=== PATIENT | female | born 1955 ===

== ENCOUNTER 2017-05-14 18:16 | Inpatient (IN) | payer OTHER, MEDICAID ==
--- NOTE | 2017-05-14 18:35 | DR.H&P ---
H&P - History & Physical for Day of: H&P Date: 05/14/17 - Chief Complaint Chief Complaint: pain, swelling, itching to bilateral upper and lower extremities, more to right lower extremity - Allergies Allergies/Adverse Reactions: Allergies Allergy/AdvReac Type Severity Reaction Status Date / Time No Known Drug Allergies Allergy Verified 05/14/17 18:28 - History of Present Illness History of Present Illness: The patient is a 62-year-old black female who is being admitted to [facility] secondary to pain, swelling, and itching to bilateral upper and lower extremities with the right being more severe. The patient was seen today in the office setting accompanied by a family member that helps provide care for her. Family member states that the patient has been on medication for fungal infection and also Atarax to help control itching, however, none of the medications has helped her at this point. The family member states that the patient's legs especially the right lower leg continues to get worse and worse. Subsequently, the patient is being admitted for further evaluation and treatment. - Past Medical History Past Medical History: Anxiety, Coronary Artery Disease, CVA, Diabetes, GERD, Hypertension - Past Surgical History Surgical History: Unknown - Family History Family History Comment: Non-contributory - Social History Does patient currently use any type of tobacco product: No Have you used tobacco products in the last 12 months: No Type of Tobacco Use: None Does any household member use tobacco: No Alcohol Use: None Drug Use: None - Review of Systems Constitutional: No Symptoms Reported Eyes: No Symptoms Reported ENT: No Symptoms Reported Respiratory: No Symptoms Reported Cardiovascular: No Symptoms Reported Gastrointestinal: No Symptoms Reported Genitourinary: No Symptoms Reported Musculoskeletal: No Symptoms Reported Skin: See HPI Neurological: Other (Patient has Dysphagia secondary to CVA) Oriented: Unable to test (Patient has deficits from CVA, family member present to answer questions.) Eyes: Normal Ear: Normal Nose: Normal Throat: Normal Respiratory: Clear Throughout Cardiovascular: Normal : Normal Auscultation: Bowel Sounds: Normal Palpation: Normal Tenderness: Normal Skin: Rash, Red, Tender, Hot, Wound Musculoskeletal: Motor Deficit (related to hx of CVA) Psychiatric: Anxiety Mood Description: Anxious Affect: Anxious Speech Pattern: Unclear, Slurred (deficits related to hx of CVA) - Assessment/Plan (1) Extensive circumferential cellulitis RLE Status: Acute Plan: Admit to med/surg. See medical record for orders. (2) Dermatitis to upper and lower ext Status: Acute Plan: Admit to med/surg. See medical record for orders.
[2017-05-14 19:51] LABS: BASOPHILS % (AUTO) 0.2 % (0.2-1.0); EOSINOPHILS # (AUTO) 0.6 x10^3/uL (0.0-0.2); EOSINOPHILS % (AUTO) 2.8 % (0.9-2.9); HEMATOCRIT 36.2 % (36.0-47.0); HEMOGLOBIN 11.8 g/dL (12.0-16.0); LYMPHOCYTES # (AUTO) 12.5 X10^3/uL (1.3-2.9); LYMPHOCYTES % (AUTO) 60.5 % (21.0-51.0); MEAN CORPUSCULAR HEMOGLOBIN 26.2 pg (27.0-34.0); MEAN CORPUSCULAR HGB CONC 32.7 g/dL (33.0-35.0); MEAN CORPUSCULAR VOLUME 80.1 fL (80.0-100.0); MEAN PLATELET VOLUME 8.2 fL (7.4-11.0); MONOCYTES # (AUTO) 0.8 x10^3/uL (0.3-0.8); MONOCYTES % (AUTO) 3.8 % (0.0-13.0); NEUTROPHILS # (AUTO) 6.7 x10^3/uL (2.2-4.8); NEUTROPHILS % (AUTO) 32.7 % (42.0-75.0); PLATELET COUNT 235 X10^3/uL (150.0-450.0); RED BLOOD COUNT 4.53 X10^6/uL (3.5-5.4); RED CELL DISTRIBUTION WIDTH 14.3 % (11.6-16.5)
[2017-05-14 20:07] LABS: WHITE BLOOD COUNT 20.6 X10^3/uL (3.6-10.0)
[2017-05-14 20:10] LABS: PLATELET MORPHOLOGY COMMENT NORMAL (NORMAL)
[2017-05-14 20:16] LABS: ALANINE AMINOTRANSFERASE 28 Units/L (12-78); ALBUMIN 3.6 g/dL (3.4-5.0); ALKALINE PHOSPHATASE 112 Units/L (46-116); ASPARTATE AMINO TRANSFERASE 22 Units/L (15-37); BLOOD UREA NITROGEN 18 mg/dL (7-18); CALCIUM 8.8 mg/dL (8.5-10.1); CARBON DIOXIDE 25.5 mmol/L (21-32); CHLORIDE 108 mmol/L (98-107); CREATININE 1.03 mg/dL (0.55-1.02); FREE T4 (FREE THYROXINE) 1.29 ng/dL (0.76-1.46); MAGNESIUM 1.7 mg/dL (1.7-2.9); SODIUM 142 mmol/L (136-145); TOTAL PROTEIN 7.8 g/dL (6.4-8.2); TSH (3RD GENERATION) 0.856 uIU/mL (0.358-3.74); eGFR BLACK RACES > 60 (>60); eGFR NON BLACK RACES 58 (>60)
[2017-05-14 20:29] LABS: ERYTHROCYTE SEDIMENTATION RATE 66 MM/HOUR (0-20)
[2017-05-14 20:41] VITALS: BMI 36.0
[2017-05-14] MEDS: TEFLARO 600 MG in NS 50 ML IV + SPIKE MINIBAG* 50 ML IV SCH (23:22)
[2017-05-14] MEDS: NS 1000 ML 1,000 ML IV SCH (23:22)
[2017-05-15] MEDS: VISTARIL PO PRN ×2 (00:25→13:30)
[2017-05-15 00:29] LABS: BILIRUBIN,URINE NEGATIVE (NEGATIVE); BLOOD/HEMOGLOBIN,URINE NEGATIVE (NEGATIVE); GLUCOSE, URINE NEGATIVE (NEGATIVE); KETONES,URINE NEGATIVE (NEGATIVE); LEUKOCYTE ESTERASE ,URINE NEGATIVE (NEGATIVE); NITRITES,URINE POSITIVE (NEGATIVE); PROTEIN,URINE 1+ (NEGATIVE); UROBILINOGEN,URINE NORMAL (NORMAL)
[2017-05-15 00:34] LABS: COLOR,URINE YELLOW (YELLOW)
[2017-05-15 00:35] LABS: APPEARANCE,URINE CLEAR (CLEAR); BACTERIA,URINE 1+ /HPF (NEGATIVE); MUCUS,URINE MODERATE /HPF (NEGATIVE); RBC,URINE 0-3 /HPF (NEGATIVE); SQUAMOUS EPITHELIAL CELL,UR RARE /HPF (NEGATIVE)
[2017-05-15 05:19] LABS: BASOPHILS # (AUTO) 0.1 X10^3/uL (0.0-0.1); BASOPHILS % (AUTO) 0.4 % (0.2-1.0); EOSINOPHILS # (AUTO) 0.5 x10^3/uL (0.0-0.2); EOSINOPHILS % (AUTO) 2.9 % (0.9-2.9); HEMATOCRIT 33.8 % (36.0-47.0); HEMOGLOBIN 11.2 g/dL (12.0-16.0); LYMPHOCYTES # (AUTO) 10.3 X10^3/uL (1.3-2.9); LYMPHOCYTES % (AUTO) 59.7 % (21.0-51.0); MEAN CORPUSCULAR HEMOGLOBIN 26.7 pg (27.0-34.0); MEAN CORPUSCULAR HGB CONC 33.1 g/dL (33.0-35.0); MEAN CORPUSCULAR VOLUME 80.6 fL (80.0-100.0); MEAN PLATELET VOLUME 8.5 fL (7.4-11.0); MONOCYTES # (AUTO) 0.8 x10^3/uL (0.3-0.8); MONOCYTES % (AUTO) 4.7 % (0.0-13.0); NEUTROPHILS # (AUTO) 5.5 x10^3/uL (2.2-4.8); NEUTROPHILS % (AUTO) 32.3 % (42.0-75.0); PLATELET COUNT 211 X10^3/uL (150.0-450.0); RED BLOOD COUNT 4.19 X10^6/uL (3.5-5.4); RED CELL DISTRIBUTION WIDTH 13.8 % (11.6-16.5); WHITE BLOOD COUNT 17.2 X10^3/uL (3.6-10.0)
[2017-05-15 05:23] LABS: BLOOD UREA NITROGEN 17 mg/dL (7-18); CALCIUM 8.3 mg/dL (8.5-10.1); CARBON DIOXIDE 24.7 mmol/L (21-32); CHLORIDE 109 mmol/L (98-107); CREATININE 0.88 mg/dL (0.55-1.02); SODIUM 144 mmol/L (136-145); eGFR BLACK RACES > 60 (>60); eGFR NON BLACK RACES > 60 (>60)
[2017-05-15] MEDS: TEFLARO 600 MG in NS 50 ML IV + SPIKE MINIBAG* 50 ML IV SCH ×2 (09:41→21:59)
[2017-05-15] MEDS ORDERED: ELIMITE TOPICAL CREAM TOP NR (10:00)
--- NOTE | 2017-05-15 11:05 | RAD ---
HISTORY: Shortness of breath. Study: Portable chest. Comparison: None. Findings: The trachea is midline. The cardiac silhouette is enlarged. No overt signs of failure. Ectatic thora cic aorta. No obvious focal consolidation, pleural effusion, or pneumothorax. The bony thorax is un remarkable. IMPRESSION: No acute cardiopulmonary disease. Reported By:
[2017-05-15] MEDS ORDERED: VISTARIL PO SCH (19:00)
[2017-05-15] MEDS: DILANTIN CAP 100 MG EXT REL PO SCH (21:59)
[2017-05-15] MEDS: ZOCOR TAB 40 MG PO SCH (21:59)
[2017-05-15] MEDS: TENORMIN PO SCH (21:59)
[2017-05-16] MEDS: NS 1000 ML 1,000 ML IV SCH ×2 (03:09→07:05)
[2017-05-16] MEDS: TENORMIN PO SCH ×3 (05:32→22:17)
[2017-05-16] MEDS: VISTARIL PO SCH ×3 (05:32→22:16)
[2017-05-16 06:08] LABS: BASOPHILS % (AUTO) 0.2 % (0.2-1.0); EOSINOPHILS # (AUTO) 0.4 x10^3/uL (0.0-0.2); EOSINOPHILS % (AUTO) 2.1 % (0.9-2.9); HEMATOCRIT 33.9 % (36.0-47.0); HEMOGLOBIN 11.1 g/dL (12.0-16.0); LYMPHOCYTES % (AUTO) 55.2 % (21.0-51.0); MEAN CORPUSCULAR HEMOGLOBIN 26.2 pg (27.0-34.0); MEAN CORPUSCULAR HGB CONC 32.8 g/dL (33.0-35.0); MEAN CORPUSCULAR VOLUME 79.9 fL (80.0-100.0); MEAN PLATELET VOLUME 8.8 fL (7.4-11.0); MONOCYTES # (AUTO) 1.1 x10^3/uL (0.3-0.8); MONOCYTES % (AUTO) 5.5 % (0.0-13.0); NEUTROPHILS # (AUTO) 7.4 x10^3/uL (2.2-4.8); PLATELET COUNT 206 X10^3/uL (150.0-450.0); RED BLOOD COUNT 4.24 X10^6/uL (3.5-5.4); RED CELL DISTRIBUTION WIDTH 13.8 % (11.6-16.5); WHITE BLOOD COUNT 19.9 X10^3/uL (3.6-10.0)
[2017-05-16 06:38] LABS: ALANINE AMINOTRANSFERASE 23 Units/L (12-78); ALBUMIN 2.7 g/dL (3.4-5.0); ALKALINE PHOSPHATASE 95 Units/L (46-116); ASPARTATE AMINO TRANSFERASE 34 Units/L (15-37); BLOOD UREA NITROGEN 13 mg/dL (7-18); CALCIUM 8.3 mg/dL (8.5-10.1); CARBON DIOXIDE 24.7 mmol/L (21-32); CHLORIDE 109 mmol/L (98-107); COR CA(FOR HYPOALB) 9.3 mg/dL (8.5-10.1); SODIUM 141 mmol/L (136-145); TOTAL PROTEIN 6.7 g/dL (6.4-8.2); eGFR BLACK RACES > 60 (>60); eGFR NON BLACK RACES > 60 (>60)
[2017-05-16] MEDS: XANAX PO PRN (07:04)
[2017-05-16] MEDS ORDERED: PATIENT'S HOME MEDICATION (Potassium Chloride [Potassium Chloride] 1 TAB) PO SCH (09:00)
[2017-05-16] MEDS: TEFLARO 600 MG in NS 50 ML IV + SPIKE MINIBAG* 50 ML IV SCH ×2 (09:33→22:16)
[2017-05-16] MEDS: PLAVIX PO SCH (09:36)
[2017-05-16] MEDS: NORVASC TAB 10 MG PO SCH (09:37)
[2017-05-16] MEDS: K-DUR TAB 20 MEQ PO SCH (09:37)
[2017-05-16] MEDS: LASIX PO SCH (09:37)
[2017-05-16] MEDS: NYSTATIN POWDER TOP SCH ×2 (15:00→22:17)
[2017-05-16] MEDS: BACTROBAN CREAM TOP SCH ×2 (16:59→22:18)
[2017-05-16] MEDS: DILANTIN CAP 100 MG EXT REL PO SCH (22:16)
[2017-05-16] MEDS: ZOCOR TAB 40 MG PO SCH (22:17)
[2017-05-16] MEDS: VITAMIN C PO SCH (22:17)
[2017-05-17] MEDS: NS 1000 ML 1,000 ML IV SCH (05:26)
[2017-05-17] MEDS: BACTROBAN CREAM TOP SCH ×3 (05:27→22:41)
[2017-05-17] MEDS: TENORMIN PO SCH ×3 (05:27→22:40)
[2017-05-17] MEDS: VISTARIL PO SCH ×3 (05:27→22:40)
[2017-05-17 05:46] LABS: BASOPHILS % (AUTO) 0.2 % (0.2-1.0); EOSINOPHILS # (AUTO) 0.4 x10^3/uL (0.0-0.2); EOSINOPHILS % (AUTO) 2.1 % (0.9-2.9); HEMATOCRIT 36.6 % (36.0-47.0); LYMPHOCYTES # (AUTO) 12.3 X10^3/uL (1.3-2.9); LYMPHOCYTES % (AUTO) 60.3 % (21.0-51.0); MEAN CORPUSCULAR HEMOGLOBIN 26.3 pg (27.0-34.0); MEAN CORPUSCULAR HGB CONC 32.8 g/dL (33.0-35.0); MEAN CORPUSCULAR VOLUME 80.4 fL (80.0-100.0); MEAN PLATELET VOLUME 8.6 fL (7.4-11.0); MONOCYTES # (AUTO) 0.9 x10^3/uL (0.3-0.8); MONOCYTES % (AUTO) 4.6 % (0.0-13.0); NEUTROPHILS # (AUTO) 6.7 x10^3/uL (2.2-4.8); NEUTROPHILS % (AUTO) 32.8 % (42.0-75.0); PLATELET COUNT 214 X10^3/uL (150.0-450.0); RED BLOOD COUNT 4.55 X10^6/uL (3.5-5.4); RED CELL DISTRIBUTION WIDTH 14.1 % (11.6-16.5)
[2017-05-17 05:54] LABS: ALANINE AMINOTRANSFERASE 22 Units/L (12-78); ALBUMIN 2.7 g/dL (3.4-5.0); ALKALINE PHOSPHATASE 96 Units/L (46-116); ASPARTATE AMINO TRANSFERASE 25 Units/L (15-37); BLOOD UREA NITROGEN 14 mg/dL (7-18); CALCIUM 8.3 mg/dL (8.5-10.1); CARBON DIOXIDE 25.2 mmol/L (21-32); CHLORIDE 109 mmol/L (98-107); COR CA(FOR HYPOALB) 9.3 mg/dL (8.5-10.1); COR NA(FOR HYPERGLY) 142 mmol/L (136-145); CREATININE 0.99 mg/dL (0.55-1.02); SODIUM 141 mmol/L (136-145); TOTAL PROTEIN 6.9 g/dL (6.4-8.2); eGFR BLACK RACES > 60 (>60); eGFR NON BLACK RACES > 60 (>60)
[2017-05-17 06:46] LABS: WHITE BLOOD COUNT 20.4 X10^3/uL (3.6-10.0)
[2017-05-17 06:47] LABS: PLATELET MORPHOLOGY COMMENT NORMAL (NORMAL)
[2017-05-17] MEDS: ZINC SULFATE PO SCH (11:01)
[2017-05-17] MEDS: K-DUR TAB 20 MEQ PO SCH (11:01)
[2017-05-17] MEDS: PLAVIX PO SCH (11:02)
[2017-05-17] MEDS: TEFLARO 600 MG in NS 50 ML IV + SPIKE MINIBAG* 50 ML IV SCH ×2 (11:03→22:40)
[2017-05-17] MEDS: VITAMIN C PO SCH ×2 (11:03→22:40)
[2017-05-17] MEDS: LASIX PO SCH (11:03)
[2017-05-17] MEDS: NORVASC TAB 10 MG PO SCH (11:03)
[2017-05-17] MEDS: NYSTATIN POWDER TOP SCH ×2 (11:03→22:41)
[2017-05-17] MEDS ORDERED: PHARMACY CONSULT - DOSE _____ XX SCH (15:00)
[2017-05-17] MEDS ORDERED: MORPHINE SULFATE INJ 4 MG ONE (15:23)
[2017-05-17] MEDS: MORPHINE SULFATE INJ 2 MG INJ IVP PRN (15:28)
[2017-05-17] MEDS: CLEOCIN 600 MG IV PREMIX 600 MG/50 ML BAG IV SCH ×2 (16:21→22:40)
[2017-05-17] MEDS: SILVADENE TOP SCH (16:21)
[2017-05-17] MEDS: ZOCOR TAB 40 MG PO SCH (22:40)
[2017-05-17] MEDS: DILANTIN CAP 100 MG EXT REL PO SCH (22:40)
[2017-05-18] MEDS: CLEOCIN 600 MG IV PREMIX 600 MG/50 ML BAG IV SCH ×4 (04:43→21:14)
[2017-05-18] MEDS: NS 1000 ML 1,000 ML IV SCH ×2 (05:08→21:15)
[2017-05-18] MEDS: VISTARIL PO SCH ×3 (05:26→21:14)
[2017-05-18] MEDS: TENORMIN PO SCH ×3 (05:26→21:15)
[2017-05-18] MEDS: BACTROBAN CREAM TOP SCH ×3 (05:27→21:23)
[2017-05-18 06:16] LABS: ALANINE AMINOTRANSFERASE 22 Units/L (12-78); ALBUMIN 2.4 g/dL (3.4-5.0); ALKALINE PHOSPHATASE 94 Units/L (46-116); ASPARTATE AMINO TRANSFERASE 22 Units/L (15-37); BLOOD UREA NITROGEN 12 mg/dL (7-18); CALCIUM 8.2 mg/dL (8.5-10.1); CARBON DIOXIDE 25.4 mmol/L (21-32); CHLORIDE 109 mmol/L (98-107); COR CA(FOR HYPOALB) 9.5 mg/dL (8.5-10.1); SODIUM 142 mmol/L (136-145); TOTAL PROTEIN 6.4 g/dL (6.4-8.2); eGFR BLACK RACES > 60 (>60); eGFR NON BLACK RACES 54 (>60)
[2017-05-18 06:19] LABS: BASOPHILS % (AUTO) 0.3 % (0.2-1.0); EOSINOPHILS # (AUTO) 0.5 x10^3/uL (0.0-0.2); EOSINOPHILS % (AUTO) 3.3 % (0.9-2.9); HEMATOCRIT 34.9 % (36.0-47.0); HEMOGLOBIN 11.6 g/dL (12.0-16.0); LYMPHOCYTES # (AUTO) 11.4 X10^3/uL (1.3-2.9); LYMPHOCYTES % (AUTO) 69.6 % (21.0-51.0); MEAN CORPUSCULAR HEMOGLOBIN 26.5 pg (27.0-34.0); MEAN CORPUSCULAR HGB CONC 33.2 g/dL (33.0-35.0); MEAN CORPUSCULAR VOLUME 79.7 fL (80.0-100.0); MEAN PLATELET VOLUME 8.5 fL (7.4-11.0); MONOCYTES # (AUTO) 0.9 x10^3/uL (0.3-0.8); MONOCYTES % (AUTO) 5.7 % (0.0-13.0); NEUTROPHILS # (AUTO) 3.4 x10^3/uL (2.2-4.8); NEUTROPHILS % (AUTO) 21.1 % (42.0-75.0); PLATELET COUNT 222 X10^3/uL (150.0-450.0); RED BLOOD COUNT 4.37 X10^6/uL (3.5-5.4); RED CELL DISTRIBUTION WIDTH 13.9 % (11.6-16.5); WHITE BLOOD COUNT 16.4 X10^3/uL (3.6-10.0)
[2017-05-18 06:54] LABS: BAND NEUTROPHILS % 3 % (0-10); PLATELET MORPHOLOGY COMMENT NORMAL (NORMAL)
[2017-05-18] MEDS ORDERED: XYLOCAINE 1 % (PLAIN) ONE (08:34)
[2017-05-18] MEDS: MORPHINE SULFATE INJ 2 MG INJ IVP PRN (09:30)
--- NOTE | 2017-05-18 10:07 | DR.UPDATE ---
H&P Update History and Physical Update: History and Physical reviewed and patient examined. Changes noted: NO Yes with the following:Agree with H&P of Dr. López. Will proceed with PICC placement Procedures (ALL) - Central Line Placement PCM.CLCO: written consent Time out performed: Yes Patient placed pm monitor/pulse ox: Yes prep: mask, gown, gloves, other Centrial line prep: chlorhexidine scrub Local anesthsia used: lidocane 1% Ultrasound used for placement: Yes Central line lumen ininserted: double (trimmed length 42cm. 4cm remains out.) Post procedure: good blood return, all ports aspirated, flushed,capped, sterile dressing applied Post procedure xray: tip oc catheter in good position (remains in left subclavian vein. was unable to further advance with guidewire. good blood return both ports and flushes easily) Patient tolerated procedure: Yes Complications: none
[2017-05-18] MEDS: PERCOCET TAB 5/325 MG PO PRN (10:19)
[2017-05-18] MEDS: XANAX PO PRN (10:20)
[2017-05-18] MEDS: TEFLARO 600 MG in NS 50 ML IV + SPIKE MINIBAG* 50 ML IV SCH ×2 (10:20→21:14)
[2017-05-18] MEDS: DIFLUCAN 200 MG IV PREMIX* 200 MG/100 ML BAG IV SCH (10:21)
[2017-05-18] MEDS: VITAMIN C PO SCH ×2 (10:22→21:14)
[2017-05-18] MEDS: NORVASC TAB 10 MG PO SCH (10:22)
[2017-05-18] MEDS: LASIX PO SCH (10:22)
[2017-05-18] MEDS: PLAVIX PO SCH (10:22)
[2017-05-18] MEDS: K-DUR TAB 20 MEQ PO SCH (10:22)
[2017-05-18] MEDS: ZINC SULFATE PO SCH (10:23)
[2017-05-18] MEDS: NYSTATIN POWDER TOP SCH ×2 (10:24→21:16)
[2017-05-18] MEDS: SILVADENE TOP SCH (10:24)
[2017-05-18] MEDS: ZOCOR TAB 40 MG PO SCH (21:15)
[2017-05-19] MEDS: NS 1000 ML 1,000 ML IV SCH ×3 (01:24→14:32)
[2017-05-19] MEDS: CLEOCIN 600 MG IV PREMIX 600 MG/50 ML BAG IV SCH ×4 (03:19→22:46)
[2017-05-19] MEDS: MORPHINE SULFATE INJ 2 MG INJ IVP PRN ×3 (03:54→21:20)
[2017-05-19] MEDS: BACTROBAN CREAM TOP SCH ×3 (06:02→21:19)
[2017-05-19] MEDS: TENORMIN PO SCH ×3 (06:02→21:19)
[2017-05-19] MEDS: VISTARIL PO SCH ×3 (06:02→21:19)
[2017-05-19 06:05] LABS: BASOPHILS % (AUTO) 0.2 % (0.2-1.0); EOSINOPHILS # (AUTO) 0.5 x10^3/uL (0.0-0.2); EOSINOPHILS % (AUTO) 3.7 % (0.9-2.9); HEMATOCRIT 33.2 % (36.0-47.0); HEMOGLOBIN 10.9 g/dL (12.0-16.0); LYMPHOCYTES # (AUTO) 9.7 X10^3/uL (1.3-2.9); LYMPHOCYTES % (AUTO) 69.3 % (21.0-51.0); MEAN CORPUSCULAR HEMOGLOBIN 26.2 pg (27.0-34.0); MEAN CORPUSCULAR HGB CONC 32.8 g/dL (33.0-35.0); MEAN CORPUSCULAR VOLUME 79.9 fL (80.0-100.0); MEAN PLATELET VOLUME 8.3 fL (7.4-11.0); MONOCYTES # (AUTO) 0.9 x10^3/uL (0.3-0.8); MONOCYTES % (AUTO) 6.3 % (0.0-13.0); NEUTROPHILS # (AUTO) 2.9 x10^3/uL (2.2-4.8); NEUTROPHILS % (AUTO) 20.5 % (42.0-75.0); PLATELET COUNT 218 X10^3/uL (150.0-450.0); RED BLOOD COUNT 4.15 X10^6/uL (3.5-5.4); RED CELL DISTRIBUTION WIDTH 13.7 % (11.6-16.5)
[2017-05-19 06:29] LABS: ALANINE AMINOTRANSFERASE 16 Units/L (12-78); ALBUMIN 2.4 g/dL (3.4-5.0); ALKALINE PHOSPHATASE 94 Units/L (46-116); ASPARTATE AMINO TRANSFERASE 19 Units/L (15-37); BLOOD UREA NITROGEN 13 mg/dL (7-18); CALCIUM 8.1 mg/dL (8.5-10.1); CARBON DIOXIDE 25.6 mmol/L (21-32); CHLORIDE 109 mmol/L (98-107); COR CA(FOR HYPOALB) 9.4 mg/dL (8.5-10.1); CREATININE 0.96 mg/dL (0.55-1.02); SODIUM 141 mmol/L (136-145); TOTAL PROTEIN 6.5 g/dL (6.4-8.2); eGFR BLACK RACES > 60 (>60); eGFR NON BLACK RACES > 60 (>60)
[2017-05-19 06:37] LABS: PLATELET MORPHOLOGY COMMENT NORMAL (NORMAL)
[2017-05-19] MEDS: DIFLUCAN 200 MG IV PREMIX* 200 MG/100 ML BAG IV SCH (09:39)
[2017-05-19] MEDS: PLAVIX PO SCH (09:40)
[2017-05-19] MEDS: NORVASC TAB 10 MG PO SCH (09:40)
[2017-05-19] MEDS: VITAMIN C PO SCH ×2 (09:40→20:14)
[2017-05-19] MEDS: ZINC SULFATE PO SCH (09:41)
[2017-05-19] MEDS: K-DUR TAB 20 MEQ PO SCH (09:42)
[2017-05-19] MEDS: NYSTATIN POWDER TOP SCH ×2 (09:42→20:11)
[2017-05-19] MEDS: SILVADENE TOP SCH (09:43)
[2017-05-19] MEDS: LASIX PO SCH (09:43)
[2017-05-19] MEDS: TEFLARO 600 MG in NS 50 ML IV + SPIKE MINIBAG* 50 ML IV SCH ×2 (09:43→20:10)
[2017-05-19] MEDS: PERCOCET TAB 5/325 MG PO PRN ×2 (10:56→20:13)
[2017-05-19] MEDS: XANAX PO PRN ×2 (10:57→20:14)
[2017-05-19] MEDS: ZOCOR TAB 40 MG PO SCH (20:14)
[2017-05-20] MEDS: CLEOCIN 600 MG IV PREMIX 600 MG/50 ML BAG IV SCH ×4 (02:21→20:13)
[2017-05-20] MEDS: NS 1000 ML 1,000 ML IV SCH ×2 (04:57→17:53)
[2017-05-20] MEDS: PERCOCET TAB 5/325 MG PO PRN ×2 (05:28→20:09)
[2017-05-20] MEDS: TENORMIN PO SCH ×3 (05:28→21:04)
[2017-05-20] MEDS: VISTARIL PO SCH ×3 (05:29→21:04)
[2017-05-20 05:45] LABS: ALANINE AMINOTRANSFERASE 16 Units/L (12-78); ALBUMIN 2.2 g/dL (3.4-5.0); ALKALINE PHOSPHATASE 86 Units/L (46-116); ASPARTATE AMINO TRANSFERASE 16 Units/L (15-37); BLOOD UREA NITROGEN 11 mg/dL (7-18); CALCIUM 7.7 mg/dL (8.5-10.1); CARBON DIOXIDE 26.3 mmol/L (21-32); CHLORIDE 108 mmol/L (98-107); COR CA(FOR HYPOALB) 9.1 mg/dL (8.5-10.1); CREATININE 0.98 mg/dL (0.55-1.02); SODIUM 142 mmol/L (136-145); TOTAL PROTEIN 6.2 g/dL (6.4-8.2); eGFR BLACK RACES > 60 (>60); eGFR NON BLACK RACES > 60 (>60)
[2017-05-20 06:07] LABS: BASOPHILS % (AUTO) 0.1 % (0.2-1.0); EOSINOPHILS # (AUTO) 0.5 x10^3/uL (0.0-0.2); EOSINOPHILS % (AUTO) 4.3 % (0.9-2.9); HEMATOCRIT 31.3 % (36.0-47.0); HEMOGLOBIN 10.5 g/dL (12.0-16.0); LYMPHOCYTES % (AUTO) 76.2 % (21.0-51.0); MEAN CORPUSCULAR HEMOGLOBIN 26.5 pg (27.0-34.0); MEAN CORPUSCULAR HGB CONC 33.4 g/dL (33.0-35.0); MEAN CORPUSCULAR VOLUME 79.4 fL (80.0-100.0); MEAN PLATELET VOLUME 8.3 fL (7.4-11.0); MONOCYTES # (AUTO) 0.7 x10^3/uL (0.3-0.8); MONOCYTES % (AUTO) 5.8 % (0.0-13.0); NEUTROPHILS # (AUTO) 1.6 x10^3/uL (2.2-4.8); NEUTROPHILS % (AUTO) 13.6 % (42.0-75.0); PLATELET COUNT 230 X10^3/uL (150.0-450.0); RED BLOOD COUNT 3.94 X10^6/uL (3.5-5.4); RED CELL DISTRIBUTION WIDTH 13.8 % (11.6-16.5); WHITE BLOOD COUNT 11.9 X10^3/uL (3.6-10.0)
[2017-05-20 06:34] LABS: PLATELET MORPHOLOGY COMMENT NORMAL (NORMAL)
[2017-05-20] MEDS: DIFLUCAN 200 MG IV PREMIX* 200 MG/100 ML BAG IV SCH (08:39)
[2017-05-20] MEDS: K-DUR TAB 20 MEQ PO SCH (08:40)
[2017-05-20] MEDS: TEFLARO 600 MG in NS 50 ML IV + SPIKE MINIBAG* 50 ML IV SCH ×2 (08:40→20:08)
[2017-05-20] MEDS: NYSTATIN POWDER TOP SCH ×2 (08:41→20:18)
[2017-05-20] MEDS: NORVASC TAB 10 MG PO SCH (08:41)
[2017-05-20] MEDS: ZINC SULFATE PO SCH (08:41)
[2017-05-20] MEDS: LASIX PO SCH (08:41)
[2017-05-20] MEDS: VITAMIN C PO SCH ×2 (08:41→20:12)
[2017-05-20] MEDS: MILK OF MAGNESIA PO PRN (08:42)
[2017-05-20] MEDS: PLAVIX PO SCH (08:42)
[2017-05-20] MEDS: MORPHINE SULFATE INJ 2 MG INJ IVP PRN ×2 (08:43→21:32)
[2017-05-20] MEDS: BACTROBAN CREAM TOP SCH (08:56)
[2017-05-20] MEDS ORDERED: LANTISEPTIC TOP PRN (10:07)
[2017-05-20] MEDS: SILVADENE TOP SCH (10:07)
[2017-05-20] MEDS: XANAX PO PRN (20:09)
[2017-05-20] MEDS: ZOCOR TAB 40 MG PO SCH (20:09)
[2017-05-21] MEDS: CLEOCIN 600 MG IV PREMIX 600 MG/50 ML BAG IV SCH ×4 (02:11→20:43)
[2017-05-21 04:30] LABS: BASOPHILS % (AUTO) 0.1 % (0.2-1.0); EOSINOPHILS # (AUTO) 0.5 x10^3/uL (0.0-0.2); EOSINOPHILS % (AUTO) 4.1 % (0.9-2.9); HEMATOCRIT 29.2 % (36.0-47.0); HEMOGLOBIN 9.7 g/dL (12.0-16.0); LYMPHOCYTES # (AUTO) 8.3 X10^3/uL (1.3-2.9); LYMPHOCYTES % (AUTO) 70.1 % (21.0-51.0); MEAN CORPUSCULAR HEMOGLOBIN 26.3 pg (27.0-34.0); MEAN CORPUSCULAR HGB CONC 33.2 g/dL (33.0-35.0); MEAN PLATELET VOLUME 8.2 fL (7.4-11.0); MONOCYTES # (AUTO) 0.7 x10^3/uL (0.3-0.8); MONOCYTES % (AUTO) 5.6 % (0.0-13.0); NEUTROPHILS # (AUTO) 2.4 x10^3/uL (2.2-4.8); NEUTROPHILS % (AUTO) 20.1 % (42.0-75.0); PLATELET COUNT 212 X10^3/uL (150.0-450.0); RED CELL DISTRIBUTION WIDTH 13.7 % (11.6-16.5); WHITE BLOOD COUNT 11.8 X10^3/uL (3.6-10.0)
[2017-05-21 04:37] LABS: ALANINE AMINOTRANSFERASE 11 Units/L (12-78); ALKALINE PHOSPHATASE 77 Units/L (46-116); ASPARTATE AMINO TRANSFERASE 14 Units/L (15-37); BLOOD UREA NITROGEN 13 mg/dL (7-18); CALCIUM 7.6 mg/dL (8.5-10.1); CARBON DIOXIDE 25.6 mmol/L (21-32); CHLORIDE 108 mmol/L (98-107); COR CA(FOR HYPOALB) 9.2 mg/dL (8.5-10.1); COR NA(FOR HYPERGLY) 141 mmol/L (136-145); CREATININE 1.09 mg/dL (0.55-1.02); SODIUM 141 mmol/L (136-145); TOTAL PROTEIN 5.7 g/dL (6.4-8.2); eGFR BLACK RACES > 60 (>60); eGFR NON BLACK RACES 54 (>60)
[2017-05-21 05:27] LABS: PLATELET MORPHOLOGY COMMENT NORMAL (NORMAL)
[2017-05-21] MEDS: PERCOCET TAB 5/325 MG PO PRN ×2 (05:41→20:45)
[2017-05-21] MEDS: VISTARIL PO SCH ×3 (05:41→22:30)
[2017-05-21] MEDS: TENORMIN PO SCH ×3 (05:41→22:29)
[2017-05-21 06:31] LABS: ANTI-NUCLEAR ANTIBODY TEST None Detected (None Detected)
[2017-05-21] MEDS: K-DUR TAB 20 MEQ PO SCH (08:43)
[2017-05-21] MEDS: PLAVIX PO SCH (08:43)
[2017-05-21] MEDS: ZINC SULFATE PO SCH (08:43)
[2017-05-21] MEDS: VITAMIN C PO SCH ×2 (08:43→20:43)
[2017-05-21] MEDS: NORVASC TAB 10 MG PO SCH (08:44)
[2017-05-21] MEDS: LASIX PO SCH (08:44)
[2017-05-21] MEDS: NYSTATIN POWDER TOP SCH ×2 (08:45→20:48)
[2017-05-21] MEDS: MORPHINE SULFATE INJ 2 MG INJ IVP PRN ×2 (09:34→22:34)
[2017-05-21] MEDS: DIFLUCAN 200 MG IV PREMIX* 200 MG/100 ML BAG IV SCH (09:38)
[2017-05-21] MEDS: SILVADENE TOP SCH (09:45)
[2017-05-21] MEDS: TEFLARO 600 MG in NS 50 ML IV + SPIKE MINIBAG* 50 ML IV SCH ×2 (11:15→20:56)
[2017-05-21] MEDS: XANAX PO PRN (20:44)
[2017-05-21] MEDS: ZOCOR TAB 40 MG PO SCH (20:44)
[2017-05-21] MEDS: DILANTIN CAP 100 MG EXT REL PO SCH (20:44)
[2017-05-22] MEDS: NS 1000 ML 1,000 ML IV SCH (01:33)
[2017-05-22] MEDS: CLEOCIN 600 MG IV PREMIX 600 MG/50 ML BAG IV SCH ×4 (02:50→21:48)
[2017-05-22] MEDS: TENORMIN PO SCH ×3 (05:26→21:49)
[2017-05-22] MEDS: PERCOCET TAB 5/325 MG PO PRN (05:26)
[2017-05-22] MEDS: MILK OF MAGNESIA PO PRN (05:26)
[2017-05-22] MEDS: VISTARIL PO SCH ×3 (05:26→21:49)
[2017-05-22 05:29] LABS: BASOPHILS % (AUTO) 0.3 % (0.2-1.0); EOSINOPHILS # (AUTO) 0.6 x10^3/uL (0.0-0.2); EOSINOPHILS % (AUTO) 4.4 % (0.9-2.9); HEMATOCRIT 30.2 % (36.0-47.0); HEMOGLOBIN 10.1 g/dL (12.0-16.0); LYMPHOCYTES # (AUTO) 8.7 X10^3/uL (1.3-2.9); LYMPHOCYTES % (AUTO) 68.5 % (21.0-51.0); MEAN CORPUSCULAR HEMOGLOBIN 26.5 pg (27.0-34.0); MEAN CORPUSCULAR HGB CONC 33.5 g/dL (33.0-35.0); MONOCYTES # (AUTO) 0.7 x10^3/uL (0.3-0.8); MONOCYTES % (AUTO) 5.7 % (0.0-13.0); NEUTROPHILS # (AUTO) 2.7 x10^3/uL (2.2-4.8); NEUTROPHILS % (AUTO) 21.1 % (42.0-75.0); PLATELET COUNT 218 X10^3/uL (150.0-450.0); RED BLOOD COUNT 3.82 X10^6/uL (3.5-5.4); RED CELL DISTRIBUTION WIDTH 13.8 % (11.6-16.5); WHITE BLOOD COUNT 12.7 X10^3/uL (3.6-10.0)
[2017-05-22 05:36] LABS: ALANINE AMINOTRANSFERASE 13 Units/L (12-78); ALKALINE PHOSPHATASE 78 Units/L (46-116); ASPARTATE AMINO TRANSFERASE 14 Units/L (15-37); BLOOD UREA NITROGEN 13 mg/dL (7-18); CALCIUM 7.8 mg/dL (8.5-10.1); CARBON DIOXIDE 26.1 mmol/L (21-32); CHLORIDE 108 mmol/L (98-107); COR CA(FOR HYPOALB) 9.4 mg/dL (8.5-10.1); COR NA(FOR HYPERGLY) 143 mmol/L (136-145); CREATININE 1.06 mg/dL (0.55-1.02); SODIUM 142 mmol/L (136-145); eGFR BLACK RACES > 60 (>60); eGFR NON BLACK RACES 56 (>60)
[2017-05-22 05:57] LABS: BAND NEUTROPHILS % 3 % (0-10)
[2017-05-22 05:58] LABS: PLATELET MORPHOLOGY COMMENT NORMAL (NORMAL)
[2017-05-22] MEDS: NORVASC TAB 10 MG PO SCH (09:22)
[2017-05-22] MEDS: LASIX PO SCH (09:22)
[2017-05-22] MEDS: DIFLUCAN 200 MG IV PREMIX* 200 MG/100 ML BAG IV SCH (09:22)
[2017-05-22] MEDS: VITAMIN C PO SCH ×2 (09:22→21:49)
[2017-05-22] MEDS: K-DUR TAB 20 MEQ PO SCH (09:22)
[2017-05-22] MEDS: ZINC SULFATE PO SCH (09:22)
[2017-05-22] MEDS: NYSTATIN POWDER TOP SCH ×2 (09:23→21:50)
[2017-05-22] MEDS: SILVADENE TOP SCH (09:23)
[2017-05-22] MEDS: TEFLARO 600 MG in NS 50 ML IV + SPIKE MINIBAG* 50 ML IV SCH ×2 (09:29→23:15)
[2017-05-22] MEDS: MORPHINE SULFATE INJ 2 MG INJ IVP PRN (10:57)
[2017-05-22] MEDS: DUONEB 0.5 MG/3 MG NEB SCH ×3 (12:06→20:25)
[2017-05-22] MEDS: DILANTIN CAP 100 MG EXT REL PO SCH (21:48)
[2017-05-22] MEDS: ZOCOR TAB 40 MG PO SCH (21:49)
[2017-05-23] MEDS: DUONEB 0.5 MG/3 MG NEB SCH ×6 (00:52→20:54)
[2017-05-23] MEDS: CLEOCIN 600 MG IV PREMIX 600 MG/50 ML BAG IV SCH ×4 (03:25→22:20)
[2017-05-23] MEDS: VISTARIL PO SCH ×3 (05:54→22:18)
[2017-05-23] MEDS: TENORMIN PO SCH ×3 (05:54→22:19)
[2017-05-23 06:14] LABS: BASOPHILS % (AUTO) 0.1 % (0.2-1.0); EOSINOPHILS # (AUTO) 0.5 x10^3/uL (0.0-0.2); EOSINOPHILS % (AUTO) 3.7 % (0.9-2.9); HEMATOCRIT 33.3 % (36.0-47.0); LYMPHOCYTES # (AUTO) 9.1 X10^3/uL (1.3-2.9); LYMPHOCYTES % (AUTO) 66.4 % (21.0-51.0); MEAN CORPUSCULAR HGB CONC 33.1 g/dL (33.0-35.0); MEAN CORPUSCULAR VOLUME 78.5 fL (80.0-100.0); MEAN PLATELET VOLUME 7.9 fL (7.4-11.0); MONOCYTES # (AUTO) 0.9 x10^3/uL (0.3-0.8); MONOCYTES % (AUTO) 6.5 % (0.0-13.0); NEUTROPHILS # (AUTO) 3.2 x10^3/uL (2.2-4.8); NEUTROPHILS % (AUTO) 23.3 % (42.0-75.0); PLATELET COUNT 240 X10^3/uL (150.0-450.0); RED BLOOD COUNT 4.24 X10^6/uL (3.5-5.4); RED CELL DISTRIBUTION WIDTH 13.7 % (11.6-16.5); WHITE BLOOD COUNT 13.6 X10^3/uL (3.6-10.0)
[2017-05-23 06:23] LABS: ALANINE AMINOTRANSFERASE 12 Units/L (12-78); ALBUMIN 2.4 g/dL (3.4-5.0); ALKALINE PHOSPHATASE 87 Units/L (46-116); ASPARTATE AMINO TRANSFERASE 16 Units/L (15-37); BLOOD UREA NITROGEN 13 mg/dL (7-18); CALCIUM 8.2 mg/dL (8.5-10.1); CARBON DIOXIDE 26.1 mmol/L (21-32); CHLORIDE 107 mmol/L (98-107); COR CA(FOR HYPOALB) 9.5 mg/dL (8.5-10.1); CREATININE 1.02 mg/dL (0.55-1.02); SODIUM 142 mmol/L (136-145); TOTAL PROTEIN 6.6 g/dL (6.4-8.2); eGFR BLACK RACES > 60 (>60); eGFR NON BLACK RACES 59 (>60)
[2017-05-23 07:10] LABS: PLATELET MORPHOLOGY COMMENT NORMAL (NORMAL)
[2017-05-23] MEDS: K-DUR TAB 20 MEQ PO SCH (08:51)
[2017-05-23] MEDS: NORVASC TAB 10 MG PO SCH (08:51)
[2017-05-23] MEDS: LASIX PO SCH (08:51)
[2017-05-23] MEDS: DIFLUCAN 200 MG IV PREMIX* 200 MG/100 ML BAG IV SCH (08:51)
[2017-05-23] MEDS: ZINC SULFATE PO SCH (08:51)
[2017-05-23] MEDS: VITAMIN C PO SCH ×2 (08:51→22:20)
[2017-05-23] MEDS: TEFLARO 600 MG in NS 50 ML IV + SPIKE MINIBAG* 50 ML IV SCH ×2 (08:52→22:19)
[2017-05-23] MEDS: NYSTATIN POWDER TOP SCH ×2 (11:20→22:00)
[2017-05-23] MEDS: SILVADENE TOP SCH (11:20)
--- NOTE | 2017-05-23 12:33 | DR.CONSULT ---
Consult - Consultation for Day of: Date: 05/18/17 - Chief Complaint Chief Complaint: Bilateral lower extremity cellulitis. - Allergies Allergies/Adverse Reactions: Allergies Allergy/AdvReac Type Severity Reaction Status Date / Time No Known Drug Allergies Allergy Verified 05/14/17 18:28 - History of Present Illness History of Present Illness: The patient is a 62 yo F who was admitted with persistent bilateral lower extremity cellulitis and significant pruritus. The patient has been treated for fungal infection recently. Although patient does not report, there has been significant scratching of the legs. The patient has been started on Teflaro and surgery consulted for possible biopsy. Currently, the patient is on Plavix for coronary artery disease. Nursing denies any purulent drainage but has noted significant skin sloughing. No significant improvement has been seen since admission. - Past Medical History Past Medical History: Anxiety, Coronary Artery Disease, CVA, Diabetes, GERD, Hypertension - Past Surgical History Surgical History: No History - Family History Family Medical History: Coronary Artery Disease, Hypertension - Social History Does patient currently use any type of tobacco product: No Have you used tobacco products in the last 12 months: No Type of Tobacco Use: None Does any household member use tobacco: No Alcohol Use: None Drug Use: None - Medications Home Medications: Alprazolam 0.5 mg PO BID PRN 05/14/17 [History Confirmed 05/14/17] Amlodipine Besylate [NORVASC 10 MG *] 10 mg PO DAILY 05/14/17 [History Confirmed 05/14/17] Atenolol 50 mg PO TID 05/14/17 [History Confirmed 05/14/17] Cetirizine HCl [Zyrtec] 10 mg PO HS 05/14/17 [History Confirmed 05/14/17] Clindamycin HCl [Cleocin HCl] 300 mg PO QID 05/14/17 [History Confirmed 05/14/17 ] Clopidogrel Bisulfate [PLAVIX TAB 75 MG *] 75 mg PO DAILY 05/14/17 [History Confirmed 05/14/17] Furosemide [LASIX TAB 40 MG *] 40 mg PO DAILY 05/14/17 [History Confirmed ] Hydroxyzine Pamoate [Vistaril] 25 mg PO Q8H 05/14/17 [History Confirmed 05/14/17 ] Labetalol HCl 300 mg PO TID 05/14/17 [History Confirmed 05/14/17] Phenytoin Sodium Ext Rel [DILANTIN CAP 100 MG EXT REL *] 3 cap PO HS 05/14/17 [ History Confirmed 05/14/17] Potassium Chloride 1 tab PO DAILY 05/14/17 [History Confirmed 05/14/17] Simvastatin [ZOCOR 40 MG *] 40 mg PO HS 05/14/17 [History Confirmed 05/14/17] - Review of Systems Constitutional: No Symptoms Reported Eyes: No Symptoms Reported ENT: No Symptoms Reported Respiratory: No Symptoms Reported Cardiovascular: No Symptoms Reported Gastrointestinal: No Symptoms Reported Genitourinary: No Symptoms Reported Musculoskeletal: No Symptoms Reported Skin: No Symptoms Reported Neurological: No Symptoms Reported, Other (Chronic deficits after CVA) - Physical Exam Vital Signs: Temperature 97.9 F Pulse Rate [Left Brachial] 65 Pulse Rate 76 Respiratory Rate 20 Blood Pressure [Left Arm] 122/58 O2 Sat by Pulse Oximetry 96 Oriented: Unable to test Eyes: Normal Respiratory: Clear Throughout Cardiovascular: Normal Auscultation: Bowel Sounds: Normal Palpation: Normal Tenderness: Normal Skin: Pustular, Red, Tender, Hot, Other (Bilateral LE's with skin sloughing inferior to knees (R>L). Significant erythema. No induration. ) Musculoskeletal: Motor Deficit Mood Description: Calm Affect: Normal Speech Pattern: Unclear, Slurred - Plan Plan: 62 yo F with R>L LE severe skin cellulitis. Severe inflammatory response with skin sloughing. (+) erythema. h/o pruritus. No need for surgical intervention at this time. Needs topical treatment and continuation IV abx. Agree with teflaro due to strep and staph coverage. If patient unable to tolerate cleaning at bedside, consider performing under MAC. If need biopsy, prefer discontinuation of plavix.
[2017-05-23] MEDS: NS 1000 ML 1,000 ML IV SCH (18:04)
[2017-05-23] MEDS: DILANTIN CAP 100 MG EXT REL PO SCH (22:18)
[2017-05-23] MEDS: ZOCOR TAB 40 MG PO SCH (22:19)
[2017-05-23] MEDS: PERCOCET TAB 5/325 MG PO PRN (22:23)
[2017-05-24] MEDS: DUONEB 0.5 MG/3 MG NEB SCH ×4 (01:27→12:33)
[2017-05-24] MEDS: CLEOCIN 600 MG IV PREMIX 600 MG/50 ML BAG IV SCH ×3 (02:44→14:47)
[2017-05-24] MEDS: VISTARIL PO SCH ×2 (05:56→14:47)
[2017-05-24] MEDS: TENORMIN PO SCH ×2 (05:56→14:47)
[2017-05-24 06:10] LABS: BASOPHILS % (AUTO) 0.1 % (0.2-1.0); EOSINOPHILS # (AUTO) 0.6 x10^3/uL (0.0-0.2); EOSINOPHILS % (AUTO) 4.2 % (0.9-2.9); HEMATOCRIT 33.5 % (36.0-47.0); HEMOGLOBIN 11.2 g/dL (12.0-16.0); LYMPHOCYTES # (AUTO) 9.5 X10^3/uL (1.3-2.9); LYMPHOCYTES % (AUTO) 68.9 % (21.0-51.0); MEAN CORPUSCULAR HEMOGLOBIN 26.2 pg (27.0-34.0); MEAN CORPUSCULAR HGB CONC 33.4 g/dL (33.0-35.0); MEAN CORPUSCULAR VOLUME 78.6 fL (80.0-100.0); MEAN PLATELET VOLUME 8.2 fL (7.4-11.0); MONOCYTES # (AUTO) 0.8 x10^3/uL (0.3-0.8); MONOCYTES % (AUTO) 5.8 % (0.0-13.0); NEUTROPHILS # (AUTO) 2.9 x10^3/uL (2.2-4.8); PLATELET COUNT 242 X10^3/uL (150.0-450.0); RED BLOOD COUNT 4.26 X10^6/uL (3.5-5.4); RED CELL DISTRIBUTION WIDTH 13.9 % (11.6-16.5); WHITE BLOOD COUNT 13.8 X10^3/uL (3.6-10.0)
[2017-05-24 07:00] LABS: ALANINE AMINOTRANSFERASE 13 Units/L (12-78); ALBUMIN 2.4 g/dL (3.4-5.0); ALKALINE PHOSPHATASE 95 Units/L (46-116); ASPARTATE AMINO TRANSFERASE 21 Units/L (15-37); BLOOD UREA NITROGEN 12 mg/dL (7-18); CALCIUM 8.4 mg/dL (8.5-10.1); CARBON DIOXIDE 26.2 mmol/L (21-32); CHLORIDE 107 mmol/L (98-107); COR CA(FOR HYPOALB) 9.7 mg/dL (8.5-10.1); SODIUM 142 mmol/L (136-145); TOTAL PROTEIN 6.6 g/dL (6.4-8.2); eGFR BLACK RACES > 60 (>60); eGFR NON BLACK RACES 60 (>60)
[2017-05-24 07:16] LABS: PLATELET MORPHOLOGY COMMENT NORMAL (NORMAL)
[2017-05-24] MEDS: NYSTATIN POWDER TOP SCH (09:00)
[2017-05-24] MEDS: K-DUR TAB 20 MEQ PO SCH (12:31)
[2017-05-24] MEDS: LASIX PO SCH (12:32)
[2017-05-24] MEDS: NORVASC TAB 10 MG PO SCH (12:32)
[2017-05-24] MEDS: DIFLUCAN 200 MG IV PREMIX* 200 MG/100 ML BAG IV SCH (12:32)
[2017-05-24] MEDS: TEFLARO 600 MG in NS 50 ML IV + SPIKE MINIBAG* 50 ML IV SCH (12:32)
[2017-05-24] MEDS: ZINC SULFATE PO SCH (12:33)
[2017-05-24] MEDS: VITAMIN C PO SCH (12:33)
[2017-05-24 16:02] VITALS: BP 123/60
== END 2017-05-24 18:30 | disposition home health service (06) | DRG 603 ==
LOC: MED/SURG 18:16
PROVIDERS: ADMIT Internal Medicine; ATTEND Internal Medicine
DX: L03.115 Cellulitis of right lower limb (principal); D68.9 Coagulation defect, unspecified; B86 Scabies; R47.81 Slurred speech; L30.8 Other specified dermatitis; I69.828 Other speech and language deficits following other cerebrovascular disease; I10 Essential (primary) hypertension; K21.9 Gastro-esophageal reflux disease without esophagitis; M62.81 Muscle weakness (generalized); R09.89 Other specified symptoms and signs involving the circulatory and respiratory systems
CPT/HCPCS: 36415; 71010; 80048; 80053; 80185; 81001; 83735; 84439; 84443; 85025; 85652; 86140; 86308; 87040; 87070; 87075; 87086; 87205; 94640; A4222; Q0177; J0077; J0712; J1450; J2001; J2270; J7620